=== PATIENT | male | born 1970 | race Caucasian/White ===

== ENCOUNTER 2020-09-14 01:57 | Emergency (ER) | payer SELFPAY ==
[2020-09-14 02:20] VITALS: BP 117/77; PULSE 76; TEMP 98.2; BMI 25.6
[2020-09-14] MEDS ORDERED: LIDOCAINE 2.5%/PRILOCAINE 2.5% 30 GRAM TUBE TP ONE (02:33)
[2020-09-14] MEDS ORDERED: TETANUS AND DIPHTHERIA TOXOID 0.5 ML DISP.SYRIN IM ONE (02:38)
[2020-09-14] MEDS ORDERED: LIDOCAINE HCL 2% (20ML MULTI-DOSE VIAL) ONE (02:39)
[2020-09-14] MEDS ORDERED: DIPHTH,PERTUSS(ACELL),TET 0.5 ML DISP.SYRIN IM ONE ×2 (02:39→02:40)
== END 2020-09-14 04:27 | disposition home or self-care (01) ==
LOC: JER 01:57
PROC: 0HQGXZZ Repair Left Hand Skin, External Approach (ICD-10-PCS; principal; 2020-09-14)
PROC: 3E0234Z Introduction of Serum, Toxoid and Vaccine into Muscle, Percutaneous Approach (ICD-10-PCS; 2020-09-14)
DX: S01.91XA Laceration without foreign body of unspecified part of head, initial encounter (principal)
CPT/HCPCS: 73130-TC-LT-FY; 90715; 99284-25

== ENCOUNTER 2022-09-26 23:29 | Emergency (ER) | payer SELFPAY ==
[2022-09-27 01:35] VITALS: BP 126/83; PULSE 92; RESP 20; TEMP 98.3; BMI 27.4
== END 2022-09-27 05:53 | disposition home or self-care (01) ==
LOC: JER 23:29
DX: F10.129 Alcohol abuse with intoxication, unspecified (principal)
CPT/HCPCS: 99281-25